=== PATIENT | male | born 1945 | race Caucasian/White ===

== ENCOUNTER 2016-02-20 15:06 | Emergency (ER) | payer MEDICARE, BC ==
[2016-02-20] MEDS ORDERED: ONDANSETRON HCL/PF 2 MG/ML VIAL IV ONE (15:53)
[2016-02-20] MEDS ORDERED: NORMAL SALINE 1,000 ML in NORMAL SALINE 1,000 ML IV ONE ×2 (15:53→17:53)
[2016-02-20] MEDS ORDERED: ONDANSETRON HCL/PF 2 MG/ML VIAL ONE (15:57)
--- NOTE | 2016-02-20 15:59 | ERNOTE ---
Medical Problem HPI - Narrative Date of Service: 02/20/16 - General Chief Complaint: Nausea/Vomiting Time Seen by Provider: 02/20/16 15:44 Source: patient Exam Limitations: no limitations - Immun/Allergies/Home Medications Immunizations: IMMUNIZATION HX Immunizations Up to Date Yes History of Influenza Vaccine No Hx Pneumococcal Vaccination Yes Allergies/Adverse Reactions: Allergies acetaminophen [From Percocet] Allergy (Verified 02/20/16 15:32) aspirin [From Percodan] Allergy (Verified 02/20/16 15:32) oxycodone HCl [From Percodan] Allergy (Verified 02/20/16 15:32) oxycodone terephthalate [From Percodan] Allergy (Verified 02/20/16 15:32) Sulfa (Sulfonamide Antibiotics) Allergy (Verified 02/20/16 15:32) Home Medications: HOME MEDICATIONS ALPRAZolam [Xanax] 0.5 mg PO DAILY PRN 02/20/16 [Last Taken Unknown] Albuterol Sulfate [Proventil 5 MG/ML Solution] 5 mg IH QID 02/20/16 [Last Taken Unknown] Azithromycin [Zithromax] 250 mg PO DAILY #6 tablet 02/20/16 [Last Taken Unknown] Cefdinir [Omnicef] 300 mg PO Q12H #20 cap 02/20/16 [Last Taken Unknown] Diltiazem HCl [Cardizem Cd] 240 mg PO Q24H 02/20/16 [Last Taken Unknown] Gabapentin [Neurontin] 300 mg PO BID 02/20/16 [Last Taken Unknown] Guaifenesin/Codeine Phosphate [Codeine-Guaifen 10-100 mg/5 ml] 10 ml PO QID PRN 7 Days 02/20/16 [Last Taken Unknown] Levofloxacin [Levaquin] 500 mg PO DAILY 02/20/16 [Last Taken Unknown] Metformin HCl [Glumetza] 1,000 mg PO DAILY 02/20/16 [Last Taken Unknown] Omeprazole [Prilosec] 20 mg PO DAILY 02/20/16 [Last Taken Unknown] Paroxetine HCl [Paxil] 30 mg PO HS 02/20/16 [Last Taken Unknown] Prednisone [Deltasone] 20 mg PO BID #10 tablet 02/20/16 [Last Taken Unknown] Rosuvastatin Calcium [Crestor] 40 mg PO DAILY 02/20/16 [Last Taken Unknown] Sucralfate [Carafate] 1 gm PO QID 02/20/16 [Last Taken Unknown] Tamsulosin HCl [Flomax] 0.4 mg PO DAILY 02/20/16 [Last Taken Unknown] - History of Present History Narrative: Pt presents with a cough and sore throat for about 10 days. Pt feels he has lost about 10 pounds over this time period and he has been having increasing hoarseness in his voice. Timing: constant, other - fluctuating intensity Severity: moderate Review of Systems - Review of Systems Constitutional: Present: malaise, weight loss EYE: Present: no symptoms reported ENT: Present: sore throat Respiratory: Present: cough Cardiology: Present: palpitations, other - tachycardia Gastrointestinal/Abdominal: Present: diarrhea Genitourinary: Present: no symptoms reported Musculoskeletal: Present: no symptoms reported Skin: Present: no symptoms reported Neurological: Present: no symptoms reported Endocrine: Present: no symptoms reported Hematologic/Lymphatic: Present: no symptoms reported Psych: Present: no symptoms reported - Patient's Past Medical History Patient History - Medical: Anxiety, Chronic Pain, Diabetes Type 2, GERD Patient History - Cancer: No Hx of Cancer Patient History - Surgical Procedures: No surgical history - Social History Smoking Status: Never smoker Have you smoked in the past 12 months: No Physical Exam - Physical Exam General Appearance: Present: wd/wn, alert, moderate distress Eye Exam: Normal inspection: bilateral, PERRL: bilateral Ears, Nose, Throat: Present: hearing grossly normal, pharyngeal erythema, dry mucous membranes Neck: Present: normal inspection, nontender Respiratory: Present: no accessory muscle use, chest nontender, crackles Cardiovascular/Chest: Present: no murmur, normal peripheral pulses, tachycardia Gastrointestinal/Abdominal: Present: normal bowel sounds, nondistended, soft, no organomegaly, tenderness Rectal Exam: Present: deferred Back Exam: Present: normal inspection, normal range of motion Extremity Exam: Present: normal inspection, non-tender, no edema, normal range of motion Neurological Exam: Present: alert, oriented, normal mood/affect Skin Exam: Present: normal color, warm/dry Lymphatic Exam: Present: no adenopathy ED Progress - Results and Orders Patient's Lab Results:: I have reviewed the patient's lab results. - Vital Signs Patient's Vital Signs:: I have reviewed the patient's vital signs. Vital Signs: Vital Signs 02/20/16 15:27 Temperature 37.1 C Pulse Rate 121 H Respiratory 18 Rate Blood Pressure 130/74 O2 Sat by Pulse 96 Oximetry - X-Ray X-Ray #1 X-Ray: abdomen Interpretation: Interp. by me, Reviewed by me X-Ray #2 X-Ray: chest Interpretation: Interp. by me, Reviewed by me - Progress/Reassessment Chief Complaint: Nausea/Vomiting Progress:: Improved - Transfer of Care Expected Disposition: Discharge Plan - Plan Plan: Pt improved substantially with just IV fluids and cough control. Departure - Departure Clinical Impression: URI (upper respiratory infection), Colitis Disposition: Home self-care Condition: Good Instructions: Upper Respiratory Infection, Adult, [id number], Colitis Prescriptions: Azithromycin [Zithromax] 250 mg PO DAILY #6 tablet Cefdinir [Omnicef] 300 mg PO Q12H #20 cap Guaifenesin/Codeine Phosphate [Codeine-Guaifen 10-100 mg/5 ml] 10 ml PO QID PRN 7 Days PRN Reason: Cough Prednisone [Deltasone] 20 mg PO BID #10 tablet
[2016-02-20 16:05] LABS: Hematocrit 44.4 % (42.0-52.0); Mean Cell Volume 84.9 fl (78-100); Mean Corpuscular Hemoglobin 28.7 pg (27-31); Mean Corpuscular Hgb Conc 33.8 g/dl (32-36); Mean Platelet Volume 9.3 fl (6.0-9.5); Neutrophil # 12.2 K/mm3 (1.3-6.0); Neutrophil % 78.4 % (42-75.0); Platelet Count 225 K/mm3 (150-450); Red Blood Count 5.23 M/mm3 (4.7-6.0); White Blood Count 15.6 K/mm3 (4.0-10.5)
[2016-02-20 16:19] LABS: Albumin * 2.9 gm/dl (3.4-5.0); BUN/Creatinine Ratio 17.4 (9.0-21.6); Bilirubin, Total 0.3 mg/dL (0.0-1.1); Ca. Corrected For Albumin 9.8 mg/dL (8.4-10.2); Calcium * 9.2 mg/dL (7.9-10.9); Carbon Dioxide 23.9 mmol/L (24-32.6); Potassium 3.9 mmol/L (3.4-4.6); Total Protein 7.6 gm/dL (6.2-8.2)
[2016-02-20 17:18] LABS: Urine Bilirubin Negative (NEGATIVE); Urine Ketone Negative (NEGATIVE); Urine Nitrite Negative (NEGATIVE); Urine Protein 15 mg/dL (NEGATIVE); Urine Specific Gravity 1.025 SP.GR. (1.005-1.030); Urine Urobilinogen Normal (NORMAL)
[2016-02-20 17:25] LABS: Urine Blood 10 /ul (NEGATIVE)
[2016-02-20 17:26] LABS: Urine Appearance Clear; Urine Bacteria None Seen; Urine Color Yellow; Urine RBC 0-5 /hpf (0-5); Urine WBC None Seen /hpf (0-5)
[2016-02-20] MEDS ORDERED: KETOROLAC TROMETHAMINE 30 MG/ML VIAL ONE (17:36)
[2016-02-20] MEDS ORDERED: KETOROLAC TROMETHAMINE 30 MG/ML VIAL IV ONE (17:39)
[2016-02-20 19:46] VITALS: BP 112/75
== END 2016-02-20 19:44 | disposition home or self-care (01) ==
LOC: ER 15:06
DX: J06.9 Acute upper respiratory infection, unspecified (principal); K52.9 Noninfective gastroenteritis and colitis, unspecified; F41.1 Generalized anxiety disorder; K21.9 Gastro-esophageal reflux disease without esophagitis; E11.9 Type 2 diabetes mellitus without complications